=== PATIENT | male | born 1975 ===

== ENCOUNTER 2025-08-17 06:22 | Day surgery (SDC) | payer BC, SELFPAY | END 2025-08-17 09:04 | disposition home or self-care (01) | LOC: GI 06:22 | PROVIDERS: ATTENDING PHYSICIAN Internal Medicine | DX: Z12.11 Encounter for screening for malignant neoplasm of colon (principal); K57.30 Diverticulosis of large intestine without perforation or abscess without bleeding; K64.8 Other hemorrhoids; K63.5 Polyp of colon | CPT/HCPCS: 45380; 88305 ==